=== PATIENT | female | born 1935 | race Caucasian/White ===

== ENCOUNTER 2019-06-05 03:21 | Inpatient (IN) ==
[2019-06-05] MEDS ORDERED: 0.9 % Sodium Chloride 1,000 ML IVC ONE ×2 (03:29→10:01)
[2019-06-05] MEDS ORDERED: Ondansetron 4 MG/2 ML VIAL IVP ONE (03:29)
[2019-06-05] MEDS ORDERED: *HR* FentaNYL (PF) 100 MCG/2 ML VIAL IVP ONE (03:29)
[2019-06-05] MEDS ORDERED: Piperacillin/Tazobactam 3.375 GM in Water for inj. (sterile) 20 ML IVP ONE (03:29)
[2019-06-05] MEDS ORDERED: Isovue-370 500 ML BOTTLE IVP ONE ×2 (03:29→08:52)
[2019-06-05] MEDS ORDERED: 0.9 % Sodium Chloride 500 ML IVC ONE (03:34)
[2019-06-05 04:05] LABS: INR 1.8; Prothrombin Time 20.1 Seconds (9.4-12.1)
[2019-06-05 04:08] LABS: Activated Partial Thrombo Time 36.4 Seconds (26.0-36.0)
[2019-06-05 04:13] LABS: Bilirubin,Urine Negative (Negative); Blood,Urine Negative (Negative); Clarity,Urine Clear (Clear); Color,Urine Yellow (Yellow); Glucose,Urine (UA) Normal (Normal); Ketones,Urine Negative (Negative); Leukocyte Esterase,Urine Negative (Negative); Nitrite,Urine Negative (Negative); Protein,Urine Negative (Neg-Trace); Specific Gravity,Urine 1.019 (1.010-1.025); Urobilinogen,Urine Normal (Normal)
[2019-06-05 04:16] LABS: Basophils % 0.1 %; Eosinophils % 0.3 %; Hematocrit 41.9 % (35.3-44.9); Hemoglobin 13.3 g/dL (11.5-15.4); Immature Granulocytes % 0.1 % (0-4); Lymphocytes # 0.4 K/mcL (0.6-4.6); Lymphocytes % 5.6 %; Mean Corpuscular HGB Conc 31.7 g/dL (31.6-35.5); Mean Corpuscular Hemoglobin 31.2 pg (28.0-33.3); Mean Corpuscular Volume 98.4 fL (83.0-100.0); Mean Platelet Volume 12.5 fL (9.4-12.4); Monocytes # 0.3 K/mcL (0.0-1.3); Monocytes % 4.8 %; Neutrophils # 6.1 K/mcL (1.6-8.9); Platelet Count 109 K/mcL (140-400); Red Blood Count 4.26 M/mcL (3.82-4.97); Red Cell Distribution Width 13.5 % (11.5-14.5); Segmented Neutrophils % 89.1 %; White Blood Count 6.8 K/mcL (4.3-11.1)
[2019-06-05 04:22] LABS: Alanine Aminotransferase 13 Units/L (7-52); Albumin 3.9 g/dL (3.5-5.7); Albumin/Globulin Ratio 1.4 (1.1-2.2); Alkaline Phosphatase 59 Units/L (34-104); Aspartate Amino Transferase 17 Units/L (13-39); BUN/Creatinine Ratio 29 (6-26); Bilirubin,Direct 0.2 mg/dL (0.0-0.2); Bilirubin,Indirect 0.6 mg/dL (0.0-1.0); Bilirubin,Total 0.8 mg/dL (0.3-1.0); Blood Urea Nitrogen 28 mg/dL (8-23); Calcium 10.3 mg/dL (8.6-10.3); Carbon Dioxide 27 mEq/L (23-29); Chloride 105 mEq/L (98-107); Globulin 2.7 g/dL (2.4-3.5); Glucose 117 mg/dL (70-105); Lipase 42 Units/L (11-82); Magnesium 1.8 mg/dL (1.6-2.6); Osmolality,Calculated 295 (280-300); Phosphorous 2.1 mg/dL (2.7-4.5); Potassium 3.8 mEq/L (3.5-5.1); Sodium 139 mEq/L (136-145); Total Protein 6.6 g/dL (6.4-8.9); Troponin I < 0.03 ng/mL (< 0.04); eGFR For African Americans > 60 (> 60); eGFR For Non-African Americans 55 (> 60)
[2019-06-05] MEDS ORDERED: MOM Conc 10 ML UD.LIQ PO PRN (07:36)
[2019-06-05] MEDS ORDERED: Mag Hydrox/Al Hydrox/Simeth 30 ML UDC PO PRN (07:36)
[2019-06-05] MEDS ORDERED: Naloxone 0.4 MG/ML INJ IVP PRN ×2 (07:36→10:58)
[2019-06-05] MEDS ORDERED: Ondansetron 4 MG/2 ML VIAL IVP PRN (07:36)
[2019-06-05] MEDS ORDERED: Piperacillin/Tazobactam 3.375 GM in 0.9 % Sodium Chloride Mini Bag 100 ML IVPB SCH (08:00)
[2019-06-05] MEDS ORDERED: 0.9 % Sodium Chloride 1,000 ML ONE (08:38)
[2019-06-05] MEDS: 0.9 % Sodium Chloride 1,000 ML IVC SCH ×3 (09:59→12:46)
[2019-06-05] MEDS ORDERED: Norepinephrine 4 MG in 0.9 % Sodium Chloride 250 ML IVC SCH (10:30)
[2019-06-05] MEDS ORDERED: Acetaminophen 325 MG TABLET PO PRN (10:58)
[2019-06-05] MEDS: Piperacillin/Tazobactam 3.375 GM in 0.9 % Sodium Chloride Mini Bag 100 ML IVPB SCH ×2 (12:50→19:13)
[2019-06-05 22:18] LABS: Acinetobacter baumannii by PCR Not Detected (Not Detect); Candida albicans by PCR Not Detected (Not Detect); Candida glabrata by PCR Not Detected (Not Detect); Candida krusei by PCR Not Detected (Not Detect); Candida parapsilosis by PCR Not Detected (Not Detect); Candida tropicalis by PCR Not Detected (Not Detect); Enterobacter cloacae Cmplx PCR Not Detected (Not Detect); Enterobacteriaceae by PCR Not Detected (Not Detect); Enterococcus by PCR Not Detected (Not Detect); Escherichia coli by PCR Not Detected (Not Detect); Klebsiella oxytoca by PCR Not Detected (Not Detect); Klebsiella pneumoniae by PCR Not Detected (Not Detect); Proteus by PCR Not Detected (Not Detect); Pseudomonas aeruginosa by PCR Not Detected (Not Detect); Serratia marcescens by PCR Not Detected (Not Detect); Staphylococcus aureus by PCR Not Detected (Not Detect); Staphylococcus by PCR DETECTED (Not Detect); Streptococcus agalactiae(B)PCR Not Detected (Not Detect); Streptococcus by PCR Not Detected (Not Detect); Streptococcus pneumoniae PCR Not Detected (Not Detect); Streptococcus pyogenes (A) PCR Not Detected (Not Detect); blaKPC Carbapenem-Resist Gene Not Detected (Not Detect); mecA Methicillin-Resist Gene DETECTED (Not Detect); vanA/B Vancomycin-Resist Genes Not Detected (Not Detect)
[2019-06-06] MEDS: 0.9 % Sodium Chloride 1,000 ML IVC SCH (01:13)
[2019-06-06] MEDS: Piperacillin/Tazobactam 3.375 GM in 0.9 % Sodium Chloride Mini Bag 100 ML IVPB SCH ×3 (03:41→19:54)
[2019-06-06 04:11] LABS: Basophils % 0.2 %; Mean Platelet Volume 12.4 fL (9.4-12.4); Red Cell Distribution Width 14.1 % (11.5-14.5)
[2019-06-06 04:13] LABS: Eosinophils % 0.4 %; Hematocrit 31.6 % (35.3-44.9); Hemoglobin 10.2 g/dL (11.5-15.4); Immature Platelets 10.3 % (1.1-6.1); Lymphocytes # 0.8 K/mcL (0.6-4.6); Lymphocytes % 8.2 %; Mean Corpuscular HGB Conc 32.3 g/dL (31.6-35.5); Mean Corpuscular Hemoglobin 31.3 pg (28.0-33.3); Mean Corpuscular Volume 96.9 fL (83.0-100.0); Monocytes # 0.7 K/mcL (0.0-1.3); Monocytes % 7.7 %; Neutrophils # 7.8 K/mcL (1.6-8.9); Red Blood Count 3.26 M/mcL (3.82-4.97); Segmented Neutrophils % 82.5 %; White Blood Count 9.4 K/mcL (4.3-11.1)
[2019-06-06 04:19] LABS: Platelet Count 78 K/mcL (140-400)
[2019-06-06 04:25] LABS: BUN/Creatinine Ratio 21 (6-26); Blood Urea Nitrogen 16 mg/dL (8-23); Calcium 7.9 mg/dL (8.6-10.3); Carbon Dioxide 24 mEq/L (23-29); Chloride 112 mEq/L (98-107); Glucose 108 mg/dL (70-105); INR 2.3; Magnesium 1.7 mg/dL (1.6-2.6); Osmolality,Calculated 290 (280-300); Phosphorous 1.6 mg/dL (2.7-4.5); Potassium 3.1 mEq/L (3.5-5.1); Prothrombin Time 26.2 Seconds (9.4-12.1); Sodium 139 mEq/L (136-145); eGFR For African Americans > 60 (> 60); eGFR For Non-African Americans > 60 (> 60)
[2019-06-06] MEDS ORDERED: Calcium Gluconate 1gm/50mL 1 GM/50 ML BAG IVPB PRN (04:46)
[2019-06-06] MEDS ORDERED: Potassium Chloride 40 MEQ/200 ML BAG IVPB PRN (04:46)
[2019-06-06] MEDS ORDERED: Potassium Phosphate 44 MEQ in 0.9 % Sodium Chloride 250 ML IVPB PRN (04:46)
[2019-06-06 06:13] LABS: ABG Base Excess -1 mEq/L (-2 to 3); ABG HCO3 26 mEq/L (21-27); ABG Oxygen Saturation 95 % (95-98); ABG PCO2 50 mmHg (35-45); ABG PH 7.32 pH Units (7.32-7.45); ABG PO2 83 mmHg (85-104); ABG TCO2 27 mEq/L (20-26)
[2019-06-06] MEDS ORDERED: *HR* Heparin 5,000 UNIT/ML VIAL SQ SCH ×2 (07:00→18:00)
[2019-06-06] MEDS ORDERED: Mag Hydrox/Al Hydrox/Simeth 30 ML UDC PO PRN (08:47)
[2019-06-06] MEDS ORDERED: Ondansetron 4 MG/2 ML VIAL IVP PRN (08:47)
[2019-06-06] MEDS ORDERED: MOM Conc 10 ML UD.LIQ PO PRN (08:47)
[2019-06-06] MEDS ORDERED: Naloxone 0.4 MG/ML INJ IVP PRN (08:47)
[2019-06-06] MEDS ORDERED: Pantoprazole 40 MG VIAL IVP SCH (09:00)
[2019-06-06] MEDS: Pantoprazole 40 MG VIAL IVP SCH (10:06)
[2019-06-06 12:46] LABS: Troponin I 0.03 ng/mL (< 0.04)
[2019-06-06] MEDS: Acetaminophen 325 MG TABLET PO PRN (19:54)
[2019-06-07] MEDS: Piperacillin/Tazobactam 3.375 GM in 0.9 % Sodium Chloride Mini Bag 100 ML IVPB SCH (04:12)
[2019-06-07 05:05] LABS: Hematocrit 34.6 % (35.3-44.9); Hemoglobin 10.9 g/dL (11.5-15.4); Mean Corpuscular HGB Conc 31.5 g/dL (31.6-35.5); Mean Corpuscular Hemoglobin 30.9 pg (28.0-33.3); Red Blood Count 3.53 M/mcL (3.82-4.97)
[2019-06-07 05:07] LABS: Basophils % 0.2 %; Eosinophils # 0.1 K/mcL (0.0-0.6); Eosinophils % 1.5 %; Immature Granulocytes % 0.7 % (0-4); Immature Platelets 9.8 % (1.1-6.1); Lymphocytes # 0.5 K/mcL (0.6-4.6); Lymphocytes % 7.8 %; Mean Platelet Volume 12.8 fL (9.4-12.4); Monocytes # 0.5 K/mcL (0.0-1.3); Monocytes % 7.5 %; Segmented Neutrophils % 82.3 %
[2019-06-07 05:11] LABS: Neutrophils # 4.9 K/mcL (1.6-8.9); Platelet Count 81 K/mcL (140-400)
[2019-06-07 05:25] LABS: Alanine Aminotransferase 12 Units/L (7-52); Albumin 3.1 g/dL (3.5-5.7); Albumin/Globulin Ratio 1.6 (1.1-2.2); Alkaline Phosphatase 43 Units/L (34-104); Aspartate Amino Transferase 23 Units/L (13-39); BUN/Creatinine Ratio 15 (6-26); Bilirubin,Total 0.9 mg/dL (0.3-1.0); Blood Urea Nitrogen 12 mg/dL (8-23); Calcium 8.5 mg/dL (8.6-10.3); Carbon Dioxide 22 mEq/L (23-29); Chloride 112 mEq/L (98-107); Glucose 97 mg/dL (70-105); Magnesium 2.1 mg/dL (1.6-2.6); Osmolality,Calculated 296 (280-300); Potassium 3.7 mEq/L (3.5-5.1); Sodium 143 mEq/L (136-145); Total Protein 5.1 g/dL (6.4-8.9); eGFR For African Americans > 60 (> 60); eGFR For Non-African Americans > 60 (> 60)
[2019-06-07] MEDS ORDERED: Aminoglycoside Consult 1 EACH MC ONE (07:29)
[2019-06-07] MEDS: Pantoprazole 40 MG VIAL IVP SCH (09:55)
[2019-06-07 12:22] LABS: INR 1.3; Prothrombin Time 14.2 Seconds (9.4-12.1)
[2019-06-07] MEDS ORDERED: NON-FORMULARY MEDICATION 1 EACH EACH (Alendronate Sodium [Fosamax] 70 MG) PO SCH (17:00)
[2019-06-07] MEDS ORDERED: *HR* Warfarin 4 MG TABLET PO ONE (18:00)
[2019-06-07] MEDS ORDERED: Warfarin perPT PO PRN (18:00)
[2019-06-07] MEDS: Metoprolol XL (24 HR) Succ 50 MG TAB.ER.24H PO SCH (18:04)
[2019-06-07] MEDS: Acetaminophen 325 MG TABLET PO PRN (18:08)
[2019-06-08 04:51] LABS: Mean Platelet Volume 12.8 fL (9.4-12.4)
[2019-06-08 04:53] LABS: Hemoglobin 10.4 g/dL (11.5-15.4); Immature Platelets 10.6 % (1.1-6.1); Mean Corpuscular HGB Conc 29.7 g/dL (31.6-35.5); Mean Corpuscular Hemoglobin 30.7 pg (28.0-33.3); Mean Corpuscular Volume 103.2 fL (83.0-100.0); Red Blood Count 3.39 M/mcL (3.82-4.97); Red Cell Distribution Width 13.7 % (11.5-14.5); White Blood Count 4.1 K/mcL (4.3-11.1)
[2019-06-08 05:24] LABS: BUN/Creatinine Ratio 14 (6-26); Blood Urea Nitrogen 10 mg/dL (8-23); Calcium 8.8 mg/dL (8.6-10.3); Carbon Dioxide 21 mEq/L (23-29); Chloride 114 mEq/L (98-107); Glucose 92 mg/dL (70-105); Osmolality,Calculated 297 (280-300); Potassium 3.8 mEq/L (3.5-5.1); Sodium 144 mEq/L (136-145); eGFR For African Americans > 60 (> 60); eGFR For Non-African Americans > 60 (> 60)
[2019-06-08 06:42] LABS: INR 1.2; Prothrombin Time 14.1 Seconds (9.4-12.1)
[2019-06-08] MEDS: Metoprolol XL (24 HR) Succ 50 MG TAB.ER.24H PO SCH (08:45)
[2019-06-08] MEDS: Acetaminophen 325 MG TABLET PO PRN (08:50)
[2019-06-08 12:20] VITALS: BP 115/67
[2019-06-08] MEDS ORDERED: *HR* Warfarin 4 MG TABLET PO ONE (18:00)
== END 2019-06-08 17:54 | DRG 391 ==
LOC: 2ANU 03:21 → EMEROOARM 03:21 → 2ANU 08:55 → ICNU 10:11 → SUATTDRO 10:12 → ICNU 11:40 → 2ANU 06-06 13:11
PROVIDERS: ADMIT Pediatrics; ATTEND Family Medicine